=== PATIENT | male | born 2000 | race Caucasian/White ===

== ENCOUNTER 2024-12-11 13:09 | Emergency (ER) | payer OTHER, SELFPAY ==
[2024-12-11 14:00] VITALS: BP 130/70; PULSE 91; RESP 16; TEMP 36.8; O2SAT 100
--- NOTE | 2024-12-11 15:15 | PC.NURSE ---
Nasal clamp removed by EDP
--- NOTE | 2024-12-11 16:14 | ED_ITS ---
HPI - Epistaxis General Chief complaint: Epistaxis Stated complaint: Nosebleed x 45 min Time Seen by Provider: 12/11/24 14:40 History of Present Illness HPI Narrative: Patient is a 24-year-old male who presents ER with nosebleed. Has had a upper respiratory infection with a dry cough over last week. Negative for COVID and flu. Was supposed to see PCP today. Attempted to blow his nose and he began to bleed. Lasts about 45 minutes. No fevers or chills or sweats. He is on no blood thinning medications. He currently has bleeding controlled after nose clamp application. Related Data Allergies Allergy/AdvReac Type Severity Reaction Status Date / Time Fluoroquinolone Allergy Unknown Uncoded 12/11/24 14:40 Review of Systems Constitutional: Constitutional: Reports no additional constitutional complaints ENT: Reports system reviewed and no additional complaints, except as documented Cardiovascular: Cardiovascular: Reports no additional cardiovascular complaints Respiratory: Respiratory: Reports no additional respiratory complaints PMFSH Past Medical History Medical History (Updated 12/11/24 @ 16:17 by Isak Rodriguez MD) Healthy adult male Surgical History Surgical History (Updated 12/11/24 @ 16:17 by Isak Rodriguez MD) No history of previous surgery Exam Narrative: GENERAL: Well-appearing, well-nourished, and in no acute distress. HEAD: Normocephalic, atraumatic. ENT: Residual blood from bleeding right nostril and a little bit in the left. No active bleeding noted at the medial or lateral aspects of the nostril. No bleeding down the back of the throat. CHEST: Clear to auscultation. No respiratory distress. HEART: Regular rate and rhythm. Normal peripheral pulses. EXTREMITIES: Normal range of motion. No edema. NEURO: Alert and oriented x3. PSYCH: Normal mood and affect. Course Course Emergency Course: Nose irrigated. No active bleeding or area where I can perform cautery. Afrin applied. Discharged home with education. Vital Signs Vital signs: Vital Signs Temperature 98.2 F 12/11/24 14:00 Pulse Rate 91 12/11/24 14:00 Respiratory Rate 16 12/11/24 14:00 Blood Pressure 130/70 12/11/24 14:00 Pulse Oximetry 100 12/11/24 14:00 Temperature 98.2 F 12/11/24 14:00 Pulse Rate 91 12/11/24 14:00 Respiratory Rate 16 12/11/24 14:00 Blood Pressure 130/70 12/11/24 14:00 Pulse Oximetry 100 12/11/24 14:00 Discharge Plan Discharge Clinical Impression: Epistaxis Patient Disposition: Home Condition: Stable Instructions: Nosebleed (ED) Additional Instructions: Return to the ER if you have severe uncontrolled bleeding that lasts longer than 20 minutes, you lose consciousness, or you are not able to breathe. After a severe episode of nosebleeding you may have a bowel movement that appears to have blood in it. This is due to the fact that you have swallowed a lot of blood. In order to prevent nosebleeds it is recommended that you use Olm[place] nasal spray to increase moisture in your nose, you apply Vaseline as a barrier cream with a Q-tip, and that you use a humidifier/vaporizer in your bedroom at night. If you have oxymetazoline (Afrin) available, this can be used twice a day for no longer than 3 days. It can help control your bleeding. You may use claritin or zyrtec as nasal decongestants if your have a runny/stuffy nose. Patient Language: Macedonian Prescriptions: New benzonatate 200 mg capsule 200 mg PO TID PRN (Reason: cough) Qty: 14 0RF Follow-up/Referrals: Derek Hua MD [Physician] - 1 Week UNKNOWN,DOCTOR [Primary Care Provider] -
[2024-12-11 16:28] VITALS: BP 120/77; PULSE 80; RESP 17; TEMP 37.1; O2SAT 98
--- OUTSIDE RECORDS SUMMARY | 2024-12-11 17:07 | XMS_ITS | Encounter Summary ---
Author Organization [facility] Address [facility] [place] [address] Care Team Providers Care Matrix Supervisor Name Role Phone Presley Saravia MD Primary Care Provider [phone] Reason for Visit * Reason Onset Date Comments Fever 12/06/2024 Encounter Details Date Type Department Care Team (Late st Contact Info) Description 12/06/2024 MyChart Message Enc [facility] Family Medicine - [place] [address], [address] [place] [address] Presley Saravia MD [address] [facility] [address] [place], [place] [id number] Sick Social History Tobacco Use Types Packs/Day Years Used Date Smoking Tobacco: Never Passive Smoke Exposure: Past Smokeless Tobacco: Never Alcohol Use Standard Drinks/Week Comments Never 0 (1 standard drink = 0.6 oz pur e alcohol) PHQ-2 Answer Date Recorded Patient Health Questionnaire-2 Score 0 10/11/2023 Sex and Gender Information Value Date Recorded Sex Assigned at Not on file Legal Sex Male 5:45 PM VMWARE SYSTEMS ADMINISTRATOR Gender Identity Male 08/12/2021 1:47 PM VMWARE SYSTEMS ADMINISTRATOR Sexual Orientation Straight 08/12/2021 1: 47 PM VMWARE SYSTEMS ADMINISTRATOR documented as of this encounter Progress Notes * Maria Teresa Cole LPN - 12/11/2024 1:45 PM CDT Mother called due to son had to leave school this date due to bloody nose, went to [facility] [place] and they had no silver nitrate and told them to go to [facility]. They are currently sitting in triage and afraid they will miss his 3:40 appointment. This nurse spoke to MA who stated to bring him in now. Referred message to mother , who was calling patient to inform when plans changed and Dr. Adam stated since he is in an ER to stay there.Mother stated OK and she will return my call. * Maria Teresa Cole LPN - 12/10/2024 3:34 PM CDT Call placed to patient to schedule an appointment with Dr. Adam who is covering for Dr. Saravia. Unable to contact patient so call placed to mother (HIPAA) Patient continues with off and on fever, Lea, congestion, coughing non stop. Patient was scheduled for 12/11/24 @ 3:40. If unable to keep appointment will contact me in the morning. Mother states he is not getting any sleep. documented in this encounter Plan of Treatment Not on file documented as of this encounter Visit Diagnoses Not on filedocumented in this encounter Additional Health Concerns Assessment Noted Time PHQ-9 Depression Total Score: 0 01/07/20 23 2:52 PM CDT documented as of this encounter Care Teams Matrix Supervisor Relationship Specialty Start Date End Date Presley Saravia MD [address] [facility] [address] [place] [address] PCP - General FAMILY PRACTICE 11/24/21 documented as of this encounter
--- OUTSIDE RECORDS SUMMARY | 2024-12-11 17:07 | XMS_ITS | Encounter Summary ---
Author Organization [facility] Address [facility] [place] [address] Care Team Providers Care Integrity Analyst Name Role Phone Presley Saravia MD Primary Care Provider [phone] Encounter Details Date Type Department Care Team (Late st Contact Info) Description 01/25/2024 EBIQUOUS Message Enc [facility] Family Medicine - [place] [address] [facility] [address], [address] [place] [address] [facility] Social History Tobacco Use Types Packs/Day Years Used Date Smoking Tobacco: Never Passive Smoke Exposure: Past Smokeless Tobacco: Never Alcohol Use Standard Drinks/Week Comments Never 0 (1 standard drink = 0.6 oz pur e alcohol) PHQ-2 Answer Date Recorded Patient Health Questionnaire-2 Score 0 10/11/2023 Sex and Gender Information Value Date Recorded Sex Assigned at Not on file Legal Sex Male 5:45 PM PLASTIC FRAME INSERTER Gender Identity Male 08/12/2021 1:47 PM PLASTIC FRAME INSERTER Sexual Orientation Straight 08/12/2021 1: 47 PM PLASTIC FRAME INSERTER documented as of this encounter Plan of Treatment Not on file documented as of this encounter Visit Diagnoses Not on filedocumented in this encounter Additional Health Concerns Assessment Noted Time PHQ-9 Depression Total Score: 0 01/07/20 23 2:52 PM CDT documented as of this encounter Care Teams Integrity Analyst Relationship Specialty Start Date End Date Presley Saravia MD [address] [facility] [address] [place] [address] PCP - General FAMILY PRACTICE 11/24/21 documented as of this encounter
--- OUTSIDE RECORDS SUMMARY | 2024-12-11 17:07 | XMS_ITS | Encounter Summary ---
Author Organization [facility] Address [facility] [place] [address] Care Team Providers Care Pcat Instructor Name Role Phone Presley Saravia MD Primary Care Provider [phone] Encounter Details Date Type Department Care Team (Late st Contact Info) Description 11/25/2021 MyChart Message Enc [facility] Family Medicine - [place] [address], [address] [place] [address] Presley Saravia MD [address] [place], [place] [id number] question from new PT visit Social History Tobacco Use Types Packs/Day Years Used Date Smoking Tobacco: Never Smokeless Tobacco: Never Alcohol Use Standard Drinks/Week Comments Never 0 (1 standard drink = 0.6 oz pur e alcohol) Sex and Gender Information Value Date Recorded Sex Assigned at Not on file Legal Sex Male 5:45 PM GAS LINE REPAIRER Gender Identity Male 08/12/2021 1:47 PM GAS LINE REPAIRER Sexual Orientation Straight 08/12/2021 1: 47 PM GAS LINE REPAIRER COVID-19 Exposure Response Date Recorded In the last 10 days, have yo u been in contact with someone who was confirmed or suspected to have Coronavirus/COVID-19? No / Unsure 11/23/2021 8:14 PM CDT documented as of this encounter Plan of Treatment Not on file documented as of this encounter Visit Diagnoses Not on filedocumented in this encounter Care Teams Pcat Instructor Relationship Specialty Start Date End Date Presley Saravia MD [address] [facility] [address] [place] [address] PCP - General FAMILY PRACTICE 11/24/21 documented as of this encounter
--- OUTSIDE RECORDS SUMMARY | 2024-12-11 17:07 | XMS_ITS | Encounter Summary ---
Author Organization [facility] Address [facility] [place] [address] Care Team Providers Care Community Planning Technician Name Role Phone Presley Saravia MD Primary Care Provider [phone] Encounter Details Date Type Department Care Team (Late st Contact Info) Description 02/02/2022 MyCCore Mobile Networkst Message Enc [facility] Family Medicine - [place] [address], [address] [place] [address] Presley Saravia MD [address] [phone] update and nose bleeds Social History Tobacco Use Types Packs/Day Years Used Date Smoking Tobacco: Never Smokeless Tobacco: Never Alcohol Use Standard Drinks/Week Comments Never 0 (1 standard drink = 0.6 oz pur e alcohol) Sex and Gender Information Value Date Recorded Sex Assigned at Not on file Legal Sex Male 5:45 PM PROSECUTING ATTORNEY Gender Identity Male 08/12/2021 1:47 PM PROSECUTING ATTORNEY Sexual Orientation Straight 08/12/2021 1: 47 PM PROSECUTING ATTORNEY documented as of this encounter Plan of Treatment Not on file documented as of this encounter Visit Diagnoses Not on filedocumented in this encounter Care Teams Community Planning Technician Relationship Specialty Start Date End Date Presley Saravia MD [address] [address] PCP - General FAMILY PRACTICE 11/24/21 documented as of this encounter
--- OUTSIDE RECORDS SUMMARY | 2024-12-11 17:07 | XMS_ITS | Encounter Summary ---
Author Organization [facility] Address [facility] [place] [address] Care Team Providers Care Community Outreach Worker Name Role Phone Presley Saravia MD Primary Care Provider [phone] Encounter Details Date Type Department Care Team (Late st Contact Info) Description 11/23/2023 Interbank FXt Message Enc [facility] Family Medicine - [place] [address] [facility] [address], [address] [place] [phone] Presley Saravia MD [address] [place], [place] [id number] Neck and shoulder Social History Tobacco Use Types Packs/Day Years Used Date Smoking Tobacco: Never Passive Smoke Exposure: Past Smokeless Tobacco: Never Alcohol Use Standard Drinks/Week Comments Never 0 (1 standard drink = 0.6 oz pur e alcohol) PHQ-2 Answer Date Recorded Patient Health Questionnaire-2 Score 0 10/11/2023 Sex and Gender Information Value Date Recorded Sex Assigned at Not on file Legal Sex Male 5:45 PM ENVIRONMENTAL PROTECTION OFFICER Gender Identity Male 08/12/2021 1:47 PM ENVIRONMENTAL PROTECTION OFFICER Sexual Orientation Straight 08/12/2021 1: 47 PM ENVIRONMENTAL PROTECTION OFFICER documented as of this encounter Plan of Treatment Not on file documented as of this encounter Visit Diagnoses Not on filedocumented in this encounter Additional Health Concerns Assessment Noted Time PHQ-9 Depression Total Score: 0 05/25/20 23 2:52 PM CDT documented as of this encounter Care Teams Community Outreach Worker Relationship Specialty Start Date End Date Presley Saravia MD [address] [facility] [address] [place] [address] PCP - General FAMILY PRACTICE 11/24/21 documented as of this encounter
--- OUTSIDE RECORDS SUMMARY | 2024-12-11 17:07 | XMS_ITS | Encounter Summary ---
Author Organization [facility] Address [facility] [place] [address] Care Team Providers Care Charter Boat Operator Name Role Phone Presley aSravia MD Primary Care Provider [phone] Encounter Details Date Type Department Care Team (Late st Contact Info) Description 10/11/2023 Bellybaloot Message Enc [facility] Family Medicine - [place] [address] [facility] [address], [address] [place] [address] Presley Saravia MD [address] [facility] [address] [place] [address] F/u from appt today Social History Tobacco Use Types Packs/Day Years Used Date Smoking Tobacco: Never Passive Smoke Exposure: Past Smokeless Tobacco: Never Alcohol Use Standard Drinks/Week Comments Never 0 (1 standard drink = 0.6 oz pur e alcohol) PHQ-2 Answer Date Recorded Patient Health Questionnaire-2 Score 0 10/11/2023 Sex and Gender Information Value Date Recorded Sex Assigned at Not on file Legal Sex Male 5:45 PM WARP DYEING TENDER Gender Identity Male 08/12/2021 1:47 PM WARP DYEING TENDER Sexual Orientation Straight 08/12/2021 1: 47 PM WARP DYEING TENDER documented as of this encounter Functional Status * Over the past 2 weeks, how often have you been bothered by any of the following problems? Question Answer Date of Assessment Author Status Little interest or pleasure in doing things Not at all 10/11/2023 3:10 PM Fuad Faulkner MA Active Feeling down, depressed, or hopeless Not at all 10/11/2023 3:10 PM Marianne Faulkner MA Active Patient Health Questionnaire-2 Score 0 10/11/2023 3:10 PM Olinda Faulkner MA Active documented as of this encounter Plan of Treatment Not on file documented as of this encounter Visit Diagnoses Not on filedocumented in this encounter Additional Health Concerns Assessment Noted Time PHQ-9 Depression Total Score: 0 01/07/20 23 2:52 PM CDT documented as of this encounter Care Teams Charter Boat Operator Relationship Specialty Start Date End Date Presley Saravia MD [address] [address] PCP - General FAMILY PRACTICE 11/24/21 documented as of this encounter
--- OUTSIDE RECORDS SUMMARY | 2024-12-11 17:07 | XMS_ITS | Encounter Summary ---
Author Organization [facility] Address [facility] [place] [address] Care Team Providers Care Robotic Machine Operator Name Role Phone Presley Saravia MD Primary Care Provider [phone] Encounter Details Date Type Department Care Team (Late st Contact Info) Description 01/29/2022 MyCWorldWide Biggiest Message Enc [facility] Family Medicine - [place] [address] [facility], [address] [place] [address] Presley Saravia MD [address] [address] Fever & sore throat Social History Tobacco Use Types Packs/Day Years Used Date Smoking Tobacco: Never Smokeless Tobacco: Never Alcohol Use Standard Drinks/Week Comments Never 0 (1 standard drink = 0.6 oz pur e alcohol) Sex and Gender Information Value Date Recorded Sex Assigned at Not on file Legal Sex Male 5:45 PM ERP MANAGER Gender Identity Male 08/12/2021 1:47 PM ERP MANAGER Sexual Orientation Straight 08/12/2021 1: 47 PM ERP MANAGER documented as of this encounter Plan of Treatment Not on file documented as of this encounter Visit Diagnoses Not on filedocumented in this encounter Care Teams Robotic Machine Operator Relationship Specialty Start Date End Date Presley Saravia MD [address] [address] PCP - General FAMILY PRACTICE 11/24/21 documented as of this encounter
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
== END 2024-12-11 16:31 | disposition home or self-care (01) ==
PROVIDERS: Emergency Provider Emergency Medicine
DX: R04.0 Epistaxis (principal)
CPT/HCPCS: 99283; A9270